=== PATIENT | male | born 1990 | race Two or more races ===

== ENCOUNTER → 2018-09-27 | Outpatient (CLI) | payer OTHER ==
[~2018-09-27] MED LIST: ACET325T26 PO; GABA-827 PO
[2018-09-27 15:15] LABS: BASOPHILS # (AUTO) 0.03 x10^3/uL (0-0.1); BASOPHILS % (AUTO) 0 % (0-1); EOSINOPHILS # (AUTO) 0.28 x10^3/uL (0-0.4); EOSINOPHILS % (AUTO) 3 % (1-7); LYMPHOCYTES # (AUTO) 3.04 x10^3/uL (1-3.4); LYMPHOCYTES % (AUTO) 36 % (22-44); MD NO; MEAN CORPUSCULAR HEMOGLOBIN 29.3 pg (27.5-34.5); MEAN CORPUSCULAR HGB CONC 32.3 g/dL (33.2-36.2); MEAN CORPUSCULAR VOLUME 90.8 fL (81-97); MEAN PLATELET VOLUME 7.6 fL (7.4-10.4); MONOCYTES # (AUTO) 0.81 x10^3/uL (0.2-0.8); MONOCYTES % (AUTO) 10 % (2-9); NEUTROPHILS # (AUTO) 4.36 x10^3/uL (1.8-6.8); NEUTROPHILS % (AUTO) 51 % (42-75); PLATELET COUNT 274 x10^3/uL (130-400); RED BLOOD COUNT 5.45 x10^6/uL (4.38-5.82); RED CELL DISTRIBUTION WIDTH 13.5 % (9.4-14.8)
[2018-09-27 15:24] LABS: ANION GAP 4 mmol/L (5-15); CALCIUM 9.3 mg/dL (8.5-10.1); CHLORIDE 108 mmol/L (98-107)
[2018-09-27 15:25] LABS: CREATININE 0.97 mg/dL (0.7-1.3)
[2018-09-27 15:26] LABS: MICROSCOPIC NOT IND
[2018-09-27 15:26] LABS: INTERNATIONAL NORMALIZED RATIO 1.03 (0.93-1.1); PROTHROMBIN TIME 10.8 Seconds (9.6-11.5)
[2018-09-27 15:27] LABS: CULTURE INDICATED? NO
== END | disposition home or self-care (01) ==
LOC: STAR 14:14
PROVIDERS: ATTEND Neurological Surgery
DX: Z01.818 Encounter for other preprocedural examination (principal); M48.07 Spinal stenosis, lumbosacral region
CPT/HCPCS: 36415; 80048; 81003; 85025; 85610; 85730

== ENCOUNTER 2018-10-04 05:48 | Day surgery (SDC) | payer OTHER ==
[~2018-10-04] VITALS: Ht 188 cm; Wt 115.0 kg
[2018-10-04] MEDS ORDERED: THROMBIN 5,000 UNIT VIAL TP ONE (06:04)
[2018-10-04] MEDS ORDERED: BACITRACIN 50,000 UNIT ONE (06:04)
[2018-10-04] MEDS ORDERED: VANCOMYCIN 1,000 MG ONE (06:04)
[2018-10-04] MEDS ORDERED: BUPIVACAINE/EPI 0.5% 1:200K ONE (06:04)
[2018-10-04] MEDS ORDERED: LACTATED RINGERS 1,000 ML IV SCH (07:23)
[2018-10-04] MEDS ORDERED: LIDOCAINE-MPF 1%, 2ML INFIL ONE (07:30)
[2018-10-04] MEDS ORDERED: MIDAZOLAM 1 MG/ML, 2ML ONE (07:49)
[2018-10-04] MEDS ORDERED: FENTANYL PF 250 MCG/5ML ONE (07:49)
[2018-10-04] MEDS ORDERED: ROCURONIUM 10MG/ML,5ML ONE (07:52)
[2018-10-04] MEDS ORDERED: ONDANSETRON 2MG/ML, 2ML ONE (07:52)
[2018-10-04] MEDS ORDERED: DEXAMETHASONE 4 MG/ML, 1ML ONE (07:52)
[2018-10-04] MEDS ORDERED: NEOSTIGMINE 1 MG/ML, 10ML ONE (07:52)
[2018-10-04] MEDS ORDERED: GLYCOPYRROLATE 0.2MG/1ML, 5ML ONE (07:52)
[2018-10-04] MEDS ORDERED: SUCCINYLCHOLINE 20 MG/ML, 10ML ONE (07:52)
[2018-10-04] MEDS ORDERED: CEFAZOLIN 1,000 MG ONE (07:52)
[2018-10-04] MEDS ORDERED: PROPOFOL 10 MG/ML, 20ML ONE (07:52)
[2018-10-04] MEDS ORDERED: MEPERIDINE/PF 25MG/0.5ML IVPush PRN (08:30)
[2018-10-04] MEDS ORDERED: ONDANSETRON 2MG/ML, 2ML IV PRN (08:30)
[2018-10-04] MEDS ORDERED: OXYcodone IR 5MG TABLET PO ONE (08:30)
[2018-10-04] MEDS ORDERED: PROMETHAZINE 25 MG/ML, 1ML IV PRN (08:30)
[2018-10-04] MEDS ORDERED: HYDROmorphone 2 MG/ML, 1ML IVPush PRN (08:30)
[2018-10-04] MEDS ORDERED: LORazepam 2 MG/ML, 1ML IVPush PRN (08:30)
[2018-10-04] MEDS ORDERED: FENTANYL PF 100 MCG/2ML IV PRN (08:30)
[2018-10-04] MEDS ORDERED: OXYcodone 5 MG/5 ML ORAL.SOL UDC PO PRN (08:30)
[2018-10-04] MEDS ORDERED: GABAPENTIN 300 MG CAPSULE PO ONE (08:30)
[2018-10-04] MEDS ORDERED: ONDANSETRON ODT 8 MG PO PRN (08:30)
[2018-10-04] MEDS ORDERED: ACETAMINOPHEN 500 MG TABLET PO ONE (08:30)
[2018-10-04] MEDS ORDERED: ALBUTEROL SULFATE 2.5 MG/3 ML NPPB PRN (08:30)
[2018-10-04] MEDS ORDERED: LIDOCAINE 4%, 4 ML SYR/CANN TP ONE (08:57)
[2018-10-04] MEDS ORDERED: LIDOCAINE-MPF 2% ,5ML ONE (09:26)
[2018-10-04] MEDS ORDERED: FENTANYL PF 100 MCG/2ML ONE (09:57)
[2018-10-04] MEDS ORDERED: OXYcodone 5 MG/5 ML ORAL.SOL UDC ONE (09:58)
[2018-10-04] MEDS ORDERED: METHOCARBAMOL 1,000 MG in DEXTROSE 5% 100 ML IV ONE (10:00)
== END 2018-10-04 14:55 | disposition home or self-care (01) ==
LOC: OUT 05:48
PROVIDERS: ATTEND Neurological Surgery
DX: M51.16 Intervertebral disc disorders with radiculopathy, lumbar region (principal); M48.061 Spinal stenosis, lumbar region without neurogenic claudication; G43.909 Migraine, unspecified, not intractable, without status migrainosus; F32.9 Major depressive disorder, single episode, unspecified; J45.909 Unspecified asthma, uncomplicated; Z79.82 Long term (current) use of aspirin; Z87.39 Personal history of other diseases of the musculoskeletal system and connective tissue; Z72.89 Other problems related to lifestyle
CPT/HCPCS: 63030; 63035; 72100; J0330; J0690; J1100; J2250; J2405; J2704; J2710; J2800; J3010; J3370; J7120